=== PATIENT | female | born 1960 ===

== ENCOUNTER 2016-04-16 08:28 | Outpatient (CLI) | payer OTHER ==
--- NOTE | 2016-04-17 14:00 | Mammography Report ---
BILATERAL DIGITAL SCREENING MAMMOGRAM with CAD: 04/16/16 08:28:00 CLINICAL: Routine screening. COMPARISON:11/15/13 FINDINGS: The breasts are almost entirely fatty.Stable right outer postsurgical scar with a benign partially calcified mass. No new mass, architectural distortion or suspicious calcifications. IMPRESSION: No mammographic evidence of malignancy. BI-RADS CATEGORY: 2 -- Benign RECOMMENDATION: Routine mammographic screening in one year. COMMENT: Patient follow-up letters are generated by our [employer] application.
== END 2016-04-16 08:29 | disposition home or self-care (01) ==
LOC: SPVWC 08:28
DX: Z12.31 Encounter for screening mammogram for malignant neoplasm of breast (principal)
CPT/HCPCS: 77067; G0202

== ENCOUNTER 2017-04-21 09:04 | Outpatient (CLI) | payer OTHER ==
--- NOTE | 2017-04-22 11:03 | Mammography Report ---
BILATERAL DIGITAL SCREENING MAMMOGRAM with CAD: 04/21/17 09:04:00 CLINICAL: Routine screening. COMPARISON:04/16/16 and 02/14/14 FINDINGS: The breasts are mostly fatty. A right outer asymmetry with architectural distortion on the CC view requires additional imaging.No suspicious calcifications.The left breast is negative. IMPRESSION: Right asymmetry requiring further workup. BI-RADS CATEGORY: 0 -- Additional Imaging Evaluation Required RECOMMENDATION: Recall for right mediolateral , exaggerated CC and spot compression CC views and right breast ultrasound if needed. ACR BI-RADS MAMMOGRAPHIC CODES: 0 = Needs additional imaging evaluation; 1 = Negative; 2 = Benign; 3 = Probably benign; 4 = Suspicious; 5 = Malignant; 6 = Known biopsy-proven malignancy COMMENT: 1. Dense breast tissue, i.e., adenosis, fibrocystic changes, etc., may obscure an underlying neoplasm. 2. Approximately 10% of cancers are not detected with mammography. 3. A negative mammography report should not delay biopsy if a clinically suspicious mass is present. COMMENT: Patient follow-up letters are generated via our [employer] application.
== END 2017-04-21 09:05 | disposition home or self-care (01) ==
LOC: SPVWC 09:04
PROVIDERS: ATTEND Nurse Practitioner Family
DX: Z12.31 Encounter for screening mammogram for malignant neoplasm of breast (principal)
CPT/HCPCS: 77067

== ENCOUNTER 2017-06-02 08:23 | Outpatient (CLI) | payer OTHER ==
--- NOTE | 2017-06-02 10:04 | Mammography Report ---
Right mammogram and right breast ultrasound: Patient recalled for asymmetry. Additional spot cc and lateral compression images in conjunction with her prior screening exam demonstrate that the possible asymmetry is unchanged compared to her prior exam in March 2016. Left breast ultrasound shows no new findings. The previously biopsied site and a benign appearing 2.5 cm axillary lymph nodes are identified. Impression: No suspicious findings. Recommendation: Annual mammogram followup. BI-RADS CATEGORY: 2 = Benign ACR BI-RADS MAMMOGRAPHIC CODES: 0 = Needs additional imaging evaluation; 1 = Negative; 2 = Benign; 3 = Probably benign; 4 = Suspicious; 5 = Malignant; 6 = Known biopsy-proven malignancy COMMENT: 1. Dense breast tissue, i.e., adenosis, fibrocystic changes, etc., may obscure an underlying neoplasm. 2. Approximately 10% of cancers are not detected with mammography. 3. A negative mammography report should not delay biopsy if a clinically suspicious mass is present.
== END 2017-06-02 08:24 | disposition home or self-care (01) ==
LOC: SPVWC 08:23
PROVIDERS: ATTEND Nurse Practitioner Family
DX: R92.2 Inconclusive mammogram (principal)